=== PATIENT | female | born 1965 | race African-American/Black ===

== ENCOUNTER 2018-08-07 10:45 | Emergency (ER) | payer OTHER ==
[~2018-08-07] VITALS: Ht 165.1 cm; Wt 76.7 kg
[2018-08-07 13:11] VITALS: BP 118/65
== END 2018-08-07 13:21 | disposition home or self-care (01) ==
LOC: ER 10:53
DX: S46.911A Strain of unspecified muscle, fascia and tendon at shoulder and upper arm level, right arm, initial encounter (principal); X58.XXXA Exposure to other specified factors, initial encounter; Y93.89 Activity, other specified; Y99.8 Other external cause status; Y92.89 Other specified places as the place of occurrence of the external cause
CPT/HCPCS: 73030

== ENCOUNTER 2018-08-30 19:23 | Emergency (ER) | payer OTHER ==
[~2018-08-30] VITALS: Ht 165.1 cm; Wt 76.7 kg
[2018-08-30 19:40] VITALS: BP 113/55
== END 2018-08-30 21:42 | disposition home or self-care (01) ==
LOC: ER 19:36
DX: R10.2 Pelvic and perineal pain (principal); V49.49XA Driver injured in collision with other motor vehicles in traffic accident, initial encounter; Y93.89 Activity, other specified; Y99.8 Other external cause status; Y92.89 Other specified places as the place of occurrence of the external cause
CPT/HCPCS: 72170

== ENCOUNTER 2018-09-02 13:15 | Emergency (ER) | payer OTHER ==
[~2018-09-02] VITALS: Ht 165.1 cm; Wt 76.7 kg
[2018-09-02 13:30] VITALS: BP 103/53
== END 2018-09-02 15:48 | disposition home or self-care (01) ==
LOC: ER 13:20
DX: Z04.1 Encounter for examination and observation following transport accident (principal); M54.31 Sciatica, right side; M25.551 Pain in right hip
CPT/HCPCS: 93971